=== PATIENT | male | born 1955 | race Caucasian/White ===

== ENCOUNTER → 2021-05-20 | Outpatient (CLI) | payer MEDICAID ==
--- NOTE | 2021-05-21 07:17 | US ---
EXAMINATION TYPE: US carotid duplex BILAT DATE OF EXAM: 05/20/2021 COMPARISON: NONE CLINICAL HISTORY: I65.23 OCCLUSION AND STENOSIS OF BILATERAL CAROTID. EXAM MEASUREMENTS: RIGHT: Peak Systolic Velocity (PSV) cm/sec ----- Right CCA: 105 ----- Right ICA: 103 ----- Right ECA: 169 ICA/CCA ratio: 0.98 RIGHT: End Diastole cm/sec ----- Right CCA: 21.7 ----- Right ICA: 34.9 ----- Right ECA: 23. LEFT: Peak Systolic Velocity (PSV) cm/sec ----- Left CCA: 86.4 ----- Left ICA: 86.2 ----- Left ECA: 115 ICA/CCA ratio: 1.0 LEFT: End Diastole cm/sec ----- Left CCA: 12.6 ----- Left ICA: 30.4 ----- Left ECA: 22.8 VERTEBRALS (direction of flow): Right Vertebral: Antegrade Left Vertebral: Antegrade Rhythm: Normal Mild atherosclerotic changes with no significant velocity increases seen bilateral. IMPRESSION: No evidence for hemodynamically significant stenosis. Criteria for Assigning % of Stenosis / Diameter reduction (Estimation based on the indirect measurements of the internal carotid artery velocities (ICA PSV). 1. Normal (no stenosis)=ICA PSV < 125 cm/s: ratio < 2.0: ICA EDV<40 cm/s. 2. Less than 50% stenosis=ICA PSV < 125 cm/s: ratio < 2.0: ICA EDV<40 cm/s. 3. 50 to 69% stenosis=ICA PSV of 125 to 230 cm/s: ration 2.0 ? 4.0: ICA EDV 40-100 cm/s. 4. Greater than 70% stenosis to near occlusion= ICA PSV > 230 cm/s: ratio > 4.0: ICA EDV > 100 cm/s. 5. Near occlusion= ICA PSV velocities may be low or undetectable: variable ratio and ICA EDV. 6. Total occlusion=unable to detect flow.
== END | disposition home or self-care (01) ==
LOC: RADUSWWP 15:52
PROVIDERS: ATTEND Internal Medicine
DX: I65.23 Occlusion and stenosis of bilateral carotid arteries (principal)
CPT/HCPCS: 93880

== ENCOUNTER 2021-08-26 20:10 | Emergency (ER) | payer MEDICAID ==
[2021-08-26 20:18] VITALS: BP 110/66; PULSE 82; RESP 18; TEMP 98.1
[2021-08-26] MEDS ORDERED: LIDOCAINE 1% INJ 10MG/ML (5 ML VIAL-PF) SQ ONE (21:32)
--- NOTE | 2021-08-26 21:54 | ED ---
Head Injury HPI - General Chief complaint: Head Injury Stated complaint: Facial lac on thinners Time Seen by Provider: 08/26/21 21:20 Source: patient, RN notes reviewed, old records reviewed Mode of arrival: ambulatory Limitations: no limitations - History of Present Illness Initial comments: This is a 66-year-old male was working on his car a few hours before presentation. Patient lost control part underneath his car that did cause a laceration above his right eye. Patient originally had bleeding from his right eye. Significantly as he is on blood thinners but that was able to stop she was able to shower have dinner and presents to the ER for evaluation of laceration. Patient had no loss of consciousness currently has no headache MD Complaint: other (Forehead laceration) -: hour(s) Mechanism of Injury: work related injury, machine or tool related injury Location: frontal Loss of Consciousness: no Previous Trauma to this Area: No Place: home Radiation: none Severity: mild Severity scale (1-10): 3 Consistency: constant, intermittent Other Injuries: laceration Context: on other anticoagulant Associated Symptoms: denies other symptoms - Related Data Allergies/Adverse reactions: Allergies Allergy/AdvReac Type Severity Reaction Status Date / Time aspirin Allergy Anaphylaxis Verified 08/26/21 20:18 Review of Systems ROS Statement: Those systems with pertinent positive or pertinent negative responses have been documented in the HPI. ROS Other: All systems not noted in ROS Statement are negative. Past Medical History Past Medical History: Asthma, Diabetes Mellitus, Myocardial Infarction (ND) History of Any Multi-Drug Resistant Organisms: None Reported Past Surgical History: Heart Catheterization With Stent, Orthopedic Surgery Past Psychological History: No Psychological Hx Reported Smoking Status: Never smoker Past Alcohol Use History: Occasional Past Drug Use History: None Reported General Exam Limitations: no limitations General appearance: alert, in no apparent distress Head exam: Present: normocephalic, normal inspection. Absent: atraumatic (4 cm laceration above right eye) Eye exam: Present: normal appearance, PERRL, EOMI. Absent: scleral icterus, conjunctival injection, periorbital swelling ENT exam: Present: normal exam, mucous membranes moist Neck exam: Present: normal inspection. Absent: tenderness, meningismus, lymphadenopathy Respiratory exam: Present: normal lung sounds bilaterally. Absent: respiratory distress, wheezes, rales, rhonchi, stridor Cardiovascular Exam: Present: regular rate, normal rhythm, normal heart sounds. Absent: systolic murmur, diastolic murmur, rubs, gallop, clicks GI/Abdominal exam: Present: soft, normal bowel sounds. Absent: distended, tenderness, guarding, rebound, rigid Extremities exam: Present: normal inspection, full ROM, normal capillary refill. Absent: tenderness, pedal edema, joint swelling, calf tenderness Back exam: Present: normal inspection Neurological exam: Present: alert, oriented X3, CN II-XII intact Psychiatric exam: Present: normal affect, normal mood Skin exam: Present: warm, dry, intact, normal color. Absent: rash Course Vital Signs 08/26/21 20:15 Temperature 98.1 F Pulse Rate 82 Respiratory 18 Rate Blood Pressure 110/66 O2 Sat by Pulse 94 L Oximetry - Reevaluation(s) Reevaluation #1: 08/26/21 21:11 Medical records reviewed Reevaluation #2: 08/26/21 21:12 Patient informed of results and questions answered Reevaluation #3: 08/26/21 21:12 Patient symptoms improved and discharged home Procedures - Laceration Laceration #1 Consent Obtained: verbal consent Indication: laceration Site: face Size (cm): 4 Description: linear Depth: simple, single layer Anesthetic Used: lidocaine 1% Anesthesia Technique: local infiltration Type of Sutures: nylon Size of Sutures: 5-0 Technique: simple, interrupted Patient Tolerated Procedure: well Medical Decision Making - Medical Decision Making 66 male to the emergency department for evaluation laceration above right eyebrow) for laceration repaired here in the ER patient can be discharged home Disposition Clinical Impression: Closed head injury, Forehead laceration Disposition: HOME SELF-CARE Condition: Good Instructions (If sedation given, give patient instructions): Care For Your Stitches (ED), Laceration (ED) Is patient prescribed a controlled substance at d/c from ED?: No Referrals: Leeroy Painting MD [Primary Care Provider] - 1-2 days Time of Disposition: 21:55
== END 2021-08-26 22:15 | disposition home or self-care (01) ==
LOC: EC 20:10
DX: S01.81XA Laceration without foreign body of other part of head, initial encounter (principal); E11.9 Type 2 diabetes mellitus without complications; I25.2 Old myocardial infarction; J45.909 Unspecified asthma, uncomplicated; Z72.89 Other problems related to lifestyle; Z88.6 Allergy status to analgesic agent; Y99.0 Civilian activity done for income or pay; Y92.89 Other specified places as the place of occurrence of the external cause
CPT/HCPCS: 99283; 12013; J2001

== ENCOUNTER → 2021-10-01 | Outpatient (CLI) | payer MEDICAID ==
--- NOTE | 2021-10-02 07:45 | XR ---
EXAMINATION TYPE: XR elbow complete LT DATE OF EXAM: 10/01/2021 COMPARISON: NONE HISTORY: Pain FINDINGS: Three views of the elbow demonstrate no pathologic joint effusion. The osseous structures are intact . There is no acute fracture or dislocation. IMPRESSION: 1. No acute fracture or dislocation. If symptoms persist follow-up study in 7 to 10 days could be ob tained.
--- NOTE | 2021-10-02 07:46 | XR ---
EXAMINATION TYPE: XR shoulder complete RT DATE OF EXAM: 10/01/2021 COMPARISON: NONE HISTORY: Pain TECHNIQUE: Three views are submitted. FINDINGS: The osseous structures are intact. There is no acute fracture or dislocation. Mild AC joint arthropa thy. Question 1 cm nodule right midlung. IMPRESSION: 1. AC joint arthropathy 2. There is a questionable 1 cm nodule right midlung recommend chest x-ray.
== END | disposition home or self-care (01) ==
LOC: RADXRMAIN 16:08
PROVIDERS: ATTEND Internal Medicine
DX: M19.011 Primary osteoarthritis, right shoulder (principal); M77.8 Other enthesopathies, not elsewhere classified

== ENCOUNTER → 2021-10-13 | Outpatient (CLI) | payer MEDICAID ==
--- NOTE | 2021-10-13 14:30 | XR ---
EXAMINATION TYPE: XR chest 2V DATE OF EXAM: 10/13/2021 COMPARISON: NONE HISTORY: Cough. TECHNIQUE: Frontal and lateral views of the chest are obtained. FINDINGS: Increased linear opacity anterior lower lung on lateral view left well-seen on frontal vie w favoring lingular scarring and/or atelectasis. No pleural effusion or pneumothorax seen bilaterally . The cardiac silhouette size is within normal limits. Retrocardiac opacity medial left hemidiaphrag m on frontal view less well-seen on lateral view could reflect anterior pleural thickening or small t rapped pleural fluid. The osseous structures are intact. IMPRESSION: No suspicious acute pulmonary opacity. If symptoms of cough persist further investigatio n with CT exam may be warranted.
== END | disposition home or self-care (01) ==
LOC: RADXRMAIN 12:01
PROVIDERS: ATTEND Internal Medicine
DX: R05.9 Cough, unspecified (principal)
CPT/HCPCS: 71046

== ENCOUNTER → 2021-11-19 | Outpatient (CLI) | payer MEDICAID ==
[2021-11-19 18:50] LABS: African American GFR (CKD) >90 (>60 ml/min/1.73 sqM); Blood Urea Nitrogen 18 mg/dL (9-20); Non-African American GFR(CKD) >90 (>60 ml/min/1.73 sqM)
--- NOTE | 2021-11-21 10:08 | CT ---
EXAMINATION TYPE: CT chest w con DATE OF EXAM: 11/19/2021 COMPARISON: Chest x-ray October 13, 2021 HISTORY: Nodule, abnormal x-ray. CT DLP: 340.7 mGycm. Automated Exposure Control for Dose Reduction was Utilized. TECHNIQUE: CT scan of the thorax is performed following with IV Contrast, patient injected with 100 mL of Isovue 300. FINDINGS: LUNGS: Vuia-fi-znzrewge linear scarring and/or atelectasis in the bilateral lung bases. No suspicious greater than 5 mm pulmonary nodules or masses. No suspicious focal consolidation. No pleural effusio n or pneumothorax seen bilaterally. MEDIASTINUM: There are no greater than 1 cm hilar or mediastinal lymph nodes. No cardiomegaly or pe ricardial effusion is seen. Coronary artery calcification and/or stents in the LAD and RCA distribut ion are noted. Correlate clinically. OTHER: Mild diffuse fat replaced atrophy of the pancreas. Accounting for x-ray abnormality there is a hiatal hernia containing intra-abdominal fat at level of the distal esophagus accounting for the ret rocardiac opacity on x-ray. IMPRESSION: No suspicious pulmonary nodules or masses. No suspicious acute pulmonary process.
== END | disposition home or self-care (01) ==
LOC: RADCTMAIN 17:58
PROVIDERS: ATTEND Internal Medicine
DX: R91.1 Solitary pulmonary nodule (principal)
CPT/HCPCS: 82565; 84520; 71260; 36415; Q9967

== ENCOUNTER → 2023-03-17 | Outpatient (CLI) | payer BC ==
--- NOTE | 2023-03-19 09:59 | MR ---
EXAMINATION TYPE: MR brain wo/w con DATE OF EXAM: 03/17/2023 1:43 PM CLINICAL INDICATION:Male, 67 years old with history of C43.59, Melanoma, evaluating for brain mets. COMPARISON: None TECHNIQUE: Multi planar, multi sequence imaging was performed through the brain including: T1, T2, In version recovery, susceptibility weighted imaging and gradient echo imaging and Diffusion weighted im aging. The patient was then given intravenous contrast and multi planar, T1 fat-saturation images wer e obtained. IV Contrast: 8.5 cc Gadavist FINDINGS: No abnormal high T1 signal lesions to suggest melanoma metastatic disease. The garcia-white junctions, ventricular system, basal cisterns appear unremarkable. Diffusion-weighted imaging shows no evidence of restricted diffusion to suggest acute/subacute infarct. Intracranial arterial flow voids are main tained. Midline structures show no abnormality. Scattered foci of high T2 signal intensity are seen w ithin the periventricular white matter. The susceptibility weighted images do not reveal any evidence for micro-hemorrhage. After administration of gadolinium, no abnormal enhancement is seen. The bone marrow signal is within normal limits. Paranasal sinuses and mastoid air cells: Moderate scattered paranasal sinus disease. Visualized orbits: Orbital contents are intact. IMPRESSION: 1. No evidence of intracranial mass, acute/subacute infarct, or abnormal enhancement. No evidence for metastatic disease. 2. Nonspecific white matter changes, likely related to small vessel ischemic disease.
== END | disposition home or self-care (01) ==
LOC: RADMRIMAIN 12:47
PROVIDERS: ATTEND Internal Medicine
DX: G93.89 Other specified disorders of brain (principal); C43.59 Malignant melanoma of other part of trunk
CPT/HCPCS: 70553; A9585

== ENCOUNTER → 2023-07-05 | Outpatient (CLI) | payer BC, MEDICARE ==
[2023-07-05 14:33] LABS: African American GFR (CKD) >90 (>60 ml/min/1.73 sqM); Blood Urea Nitrogen 20 mg/dL (9-20); Non-African American GFR(CKD) >90 (>60 ml/min/1.73 sqM)
--- NOTE | 2023-07-05 17:42 | CT ---
EXAMINATION TYPE: CT soft tissue neck w con DATE OF EXAM: 07/05/2023 4:39 PM COMPARISON: None HISTORY: melanoma. palpable lump on right side of neck, marked with bb. CT DLP: 417.1 mGycm Automated exposure control for dose reduction was used. CONTRAST: CT scan of the neck is performed following with IV Contrast, patient injected with 100 ml mL of Isovu e 300. Axial images are obtained, coronal and sagittal reformatted images are reviewed. FINDINGS: The thyroid gland is homogeneous with no nodule or gross enlargement. The larynx inferior cricoid and arytenoid, thyroid cartilages as well as vocal cords are normal and s ymmetric. The tongue base, epiglottis,aryepiglottic folds, piriform sinuses and valleculae are normal symmetric There is no pharyngeal or parapharyngeal soft tissue mass. The parotid and submandibular glands are normal and symmetric. There are scattered jugular chain lymph nodes in submental lymph nodes but none are enlarged by CT cr iteria. Beneath the BB marker in the right neck is a normal-appearing sternocleidomastoid muscle with no absc ess, inflammation or adenopathy. There are multiple metallic densities/clips in the soft tissues of t he right supraclavicular region and within the right neck tissues consistent with prior surgery possi rodolfo lymphadenectomy. There are chronic inflammatory changes in the maxillary sinuses there are postsurgical changes of sin onasal antrostomies. There are chronic inflammatory changes in the posterior ethmoid air cells. The m astoid air cells are well aerated. IMPRESSION: 1. No abnormality in the area of clinical concern in the right neck. 2. Postsurgical changes as described above. 3. No neck mass or adenopathy. 4. Chronic inflammatory changes in the maxillary and ethmoid air cells as described above. .
--- NOTE | 2023-07-05 18:42 | CT ---
EXAMINATION TYPE: CT ChestAbdPelvis w con DATE OF EXAM: 07/05/2023 COMPARISON: None CT chest dated 11/19/2021 images not available for comparison CT DLP: 1276.9 mGycm Automated exposure control for dose reduction was used. CONTRAST: CT scan of the chest, abdomen and pelvis is performed with Oral Contrast and with IV Contrast, patien t injected with 100 ml mL of Isovue 300. FINDINGS: CT chest: There are 2 right upper lobe pulmonary nodules one measuring approximately 5.3 mm and the other measu ring approximately 7.7 mm. There is a 5.8 mm nodule in the right middle lobe. There are no lung nodul es on the left. There is mild interstitial density in the right lung base likely representing mild interstitial scarr ing or fibrosis. There is no airspace consolidation There is no pleural effusion, pleural thickening or pneumothorax. The great vessels chest are normal and is no mediastinal, hilar or axillary adenopathy. There are sca ttered lymph nodes in the mediastinum and bilateral cady but none are enlarged by CT criteria. HISTOR Y: melanoma. CT abdomen and pelvis: Gallbladder is normal without distention, pericholecystic fluid, wall thickening or gallstone. There is no biliary ductal dilatation. There is no focal mass or organomegaly involving the liver, pancreas, spleen or adrenal glands.. There is no solid renal mass or hydronephrosis. There is no retroperitoneal adenopathy or hemorrhage and the caliber of the abdominal aorta is normal. The bowel loops are normal in caliber and there is no dilatation or obstruction. No inflammatory munoz ges identified in the bowel wall and mesentery. There is no free intracranial air or fluid. There is no pelvic mass or adenopathy. There is no free fluid within the pelvis. There is mild prosta tic hypertrophy No focal osseous lesions are seen. Soft tissue the abdomen and pelvis are normal. IMPRESSION: 1. 3 pulmonary nodules as described above. Prior CT thorax images from 11/19/2021 not available current ly for comparison. The possibility of metastatic nodules cannot be excluded and short-term follow-up is recommended 2. No acute cardiopulmonary disease. 3. Multiple mediastinal and hilar lymph nodes not enlarged by CT criteria. 4. No evidence of recurrent or metastatic disease within the abdomen or pelvis.
== END | disposition home or self-care (01) ==
LOC: RADCTMAIN 13:58
PROVIDERS: ATTEND Internal Medicine
DX: J34.89 Other specified disorders of nose and nasal sinuses (principal); R91.8 Other nonspecific abnormal finding of lung field; C43.59 Malignant melanoma of other part of trunk; E11.9 Type 2 diabetes mellitus without complications; I51.9 Heart disease, unspecified; M12.9 Arthropathy, unspecified; Z98.890 Other specified postprocedural states
CPT/HCPCS: 82565; 84520; 70491; 71260; 74177; 36415; Q9967

== ENCOUNTER → 2023-12-06 | Outpatient (CLI) | payer BC, MEDICARE ==
[2023-12-06 07:58] LABS: African American GFR (CKD) >90 (>60 ml/min/1.73 sqM); Blood Urea Nitrogen 25 mg/dL (9-20); Non-African American GFR(CKD) 87 (>60 ml/min/1.73 sqM)
--- NOTE | 2023-12-06 22:45 | CT ---
EXAMINATION TYPE: CT ChestAbdPelvis w con DATE OF EXAM: 12/06/2023 INDICATION: melanoma COMPARISON: 07/05/2023 CT DLP: 1822 mGycm CONTRAST: Performed with Oral Contrast and with IV Contrast, patient injected with 100 mL of Isovue 300. TECHNIQUE: Axial images at 5 mm thick sections. Reconstructed images in the coronal plane. Delayed images through the kidneys. FINDINGS: CT CHEST: Portion of the thyroid visualized is normal. There is minimal punctate densities within the periphery of the right lungs. Consider neoplastic proc ess. A small nodule within the right midlung is smaller in comparison measuring 0.5 cm. Series 4 image 36 There is a 0.9 cm pretracheal lymph node. There is a prominent lymph node in the pretracheal space an d 1.1 cm. Right hilar adenopathy is present measuring 1.4 and 1.1 cm in size. Some left hilar adenop athy is present measuring 1.4 cm The ascending aorta diameter at the level of the main pulmonary artery is 0.2 cm. The main pulmonary artery diameter at the bifurcation is 2.8 cm. Small hiatal hernia may be present. CT ABDOMEN: Liver: Normal Spleen: Normal Pancreas: Normal Adrenal glands: The adrenal glands are normal. Gallbladder: Normal Kidneys: No masses are evident. No hydronephrosis is present. No cysts are present. Delayed images were obtained through the kidneys, which remain unremarkable. Aorta: Vascular calcification is within the aorta. Inferior vena cava: Normal. CT PELVIS: Loops of bowel within the abdomen and pelvis are normal. Diverticulosis without acute diverticulitis is present. There are loops of bowel which are incompletely distended or lack oral contrast limiti ng their evaluation. Appendix: Normal as visualized. Urinary bladder: Normal. Genitourinary structures: Prostate is prominent. Osseous structures: No suspicious lytic or sclerotic lesions. IMPRESSION: 1. Medullary peripheral nodularity within the left and right midlungs. Neoplasm is not excluded. 2. Interval development of enlarged mediastinal adenopathy. PET/CT recommended for additional workup. 3. Diverticulosis without acute diverticulitis. [facility], , 12/06/2023 10:43 PM
== END | disposition home or self-care (01) ==
LOC: RADCTMAIN 07:20
PROVIDERS: ATTEND Internal Medicine
DX: C43.59 Malignant melanoma of other part of trunk
CPT/HCPCS: 36415; 71260; 74177; 82565; 84520

== ENCOUNTER → 2024-01-06 | Outpatient (CLI) | payer BC, MEDICARE ==
--- NOTE | 2024-01-07 11:31 | PE ---
EXAMINATION TYPE: PET CT fusion skull to toes DATE OF EXAM: 01/06/2024 CLINICAL INDICATION:Male, 68 years old with history of C43.61 melanoma; TECHNIQUE: Following the intravenous administration of 11.73 mCi of F-18 FDG, whole body images are performed from the skull base to the toes. Images are reviewed on the computer in the coronal, axia l, and sagittal planes. Reconstructed rotating images are created on independent workstation and rev iewed on the computer. A non-contrast CT is performed in conjunction with the PET scan. Glucose lev el 87 mg/dL CT DLP: 743 mGycm, Automated exposure control for dose reduction was used. COMPARISON: CT 12/06/2023, PET/CT None, MRI: None FINDINGS: Mediastinal SUV mean is 1.66. Hepatic parenchyma SUV mean is 2.6. SKULL BASE AND NECK: * Left parapharyngeal lymph node max SUV 3.3 measuring 7 mm a calculi * Right leg lymph node max SUV 2.3 * Mildly positive left neck max SUV 2.2 measuring 5 mm. CHEST, MEDIASTINUM, AND HILAR REGION: Abnormal uptake within the mediastinal lymph nodes examples include: * Right pulmonary hilum max SUV 6.4 measurements difficult without IV contrast. * Left pulmonary hilum max SUV 5.4 measurements difficult without IV contrast. * Right low paratracheal max SUV 4.9 measuring 9 mm in short axis. * Right high paratracheal max SUV 4.9 measuring 10 mm in short axis There is evidence of uptake in the dependent portions of the lungs thought to be on the basis of atel ectasis given appearance of the lungs on CT imaging ABDOMEN AND PELVIS: Uptake thought to be within the abdominal wall musculature * Left max SUV 5.0. * Right max SUV 3.9. Left inguinal lymph node max SUV 3. Ar with fatty hilum measuring 9 mm in short axis additional more anteriorly max measuring Max SUV 4.9 also subcutaneous 10 mm in short axis. Right inguinal lymph node max SUV 3.3. MUSCULOSKELETAL STRUCTURES: Scattered osseous uptake which is suspicious examples include, * Right inferior scapula uptake max SUV 5.6 * Left inferior scapula max SUV 3.4 * Left iliac bone max SUV 3.2 * Posterior right acetabulum max SUV 3.1. * Left manubrium max SUV 4.1 * Right iliac bone near the sacroiliac joint max SUV 4.7. * Uptake on PET imaging deep to the right Achilles tendon approximately max SUV 2.9 and on the left 0.98, now soft tissue nodules definitively visualized possibly physiologic. * Right ischium max SUV 3.0 Possible areas of physiologic uptake * Right sternoclavicular joint max is a 3.6 * Patchy uptake within the spine favoring physiologic worse at S1 max SUV 4.6 and T12 max SUV 5.6 * Left AC joint uptake likely degenerative 3.0. OTHER CT: Right neck surgical clips extending into the shoulder. Severe atherosclerosis of the tripathi ry arteries. Small hiatal hernia is present. Prostatomegaly. Fat-containing umbilical hernia. IMPRESSION: 1. Scattered osseous uptake which is suspicious for metastatic disease. 2. Uptake on PET imaging deep to the right Achilles tendon approximately max SUV 2.9 and on the left 0.98, now soft tissue nodules definitively visualized possibly physiologic. 3. Mediastinal uptake with dependent uptake in the lungs correlate for reactive lymphadenopathy. 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 Metastatic disease is felt to be less likely but not excluded. 4. Bilateral inguinal lymph nodes with mild uptake [facility], , 01/07/2024 11:29 AM
== END | disposition home or self-care (01) ==
LOC: RADPETMAIN 08:50
PROVIDERS: ATTEND Internal Medicine
CPT/HCPCS: 78815

== ENCOUNTER → 2024-08-25 | Outpatient (CLI) | payer BC, MEDICARE ==
[2024-08-25 18:08] LABS: Anti-DNA, DS unit <1.0 IU/mL; DNA Double-Stranded Negative (Negative)
[2024-08-28 11:33] LABS: Aldolase 4.3 U/L (1.2-7.6)
== END | disposition home or self-care (01) ==
LOC: LABWHC1 10:51
PROVIDERS: ATTEND Internal Medicine
DX: R79.9 Abnormal finding of blood chemistry, unspecified (principal)
CPT/HCPCS: 36415; 82085; 82550; 83516; 86225; 86235